=== PATIENT | female | born 1965 | race Caucasian/White ===

== ENCOUNTER 2017-10-10 14:31 | Emergency (ER) | payer OTHER, MEDICAID, SELFPAY ==
[2017-10-10 14:34] VITALS: BP 113/69; PULSE 85; RESP 20; TEMP 36.5; O2SAT 97; BMI 31.1
--- NOTE | 2017-10-10 14:37 | ED_ITS ---
HPI - Back Pain/Injury <LIEN Cintron - Last Filed: 10/10/17 22:17> General Chief Complaint: Back Pain/Injury Stated Complaint: LEFT SIDE BACK PAIN Time Seen by Provider: 10/10/17 14:37 Source: patient Mode of arrival: ambulatory Limitations: no limitations History of Present Illness HPI Narrative: 51-year-old female here for complaint of pain to her left lower back since yesterday. She states that she was doing yard work yesterday when the pain started last evening. She reports the pain is now radiating into her left buttocks area. She denies any loss of bladder or bowel control. Patient is ambulatory into the emergency room. No trauma to the lower back. She denies any falls. Increased pain with motion of the lower back. No other concerns or complaints. MD Complaint: back pain Related Data Previous Rx's Medication Instructions Recorded cyclobenzaprine 10 mg PO TID PRN #10 tab 10/10/17 prednisone 40 mg PO DAILY #8 tab 10/10/17 Review of Systems <LIEN Cintron - Last Filed: 10/10/17 22:17> Constitutional Denies chills, Denies fever(s), Denies lethargy and Denies weakness Eyes Denies change in vision, Denies eye discharge, Denies irritation and Denies loss of vision ENT Ears, Nose, Mouth, and Throat: Denies change in voice, Denies neck pain and Denies sore throat Cardiovascular Denies chest pain, Denies irregular heart rhythm, Denies lightheadedness, Denies palpitations, Denies dyspnea, Denies dyspnea on exertion and Denies orthopnea Respiratory Denies cough, Denies dyspnea, Denies dyspnea on exertion and Denies wheezing Gastrointestinal Gastrointestinal: Denies abdominal pain, Denies change in bowel habits, Denies diarrhea, Denies nausea and Denies vomiting Genitourinary Denies hematuria, Denies flank pain, Denies urinary incontinence and Denies urinary urgency Musculoskeletal Reports back pain and Denies neck pain Integumentary/Breasts Denies pruritus, Denies erythema, Denies rash and Denies wounds Neurologic Denies confusion, Denies loss of vision and Denies weakness Psychiatric Denies anxiety, Denies confusion, Denies depression, Denies homicidal ideation and Denies suicidal ideation Endocrine Denies palpitations Allergic/Immunologic Denies wheezing Exam <LIEN Cintron - Last Filed: 10/10/17 22:17> Initial Vital Signs Initial Vital Signs: Vital Signs Temperature 97.7 F 10/10/17 14:34 Pulse Rate 85 10/10/17 14:34 Respiratory Rate 20 10/10/17 14:34 Blood Pressure 113/69 10/10/17 14:34 Pulse Oximetry 97 10/10/17 14:34 Const General: cooperative and well developed Nutritional Appearance: well nourished Orientation: alert, awake, oriented x3 and not confused HENMT Mouth: oral mucosae normal and moist mucous membranes Eyes Conjunctivae: conjunctivae normal Sclera: sclerae normal Pupils: PERRL EOM: EOM intact bilaterally Resp Effort & Inspection: normal respiratory effort, able to speak in complete sentences, no respiratory distress and no use of accessory muscles Auscultation: clear to auscultation bilaterally, no rales, no rhonchi and no wheezes Cardio Rate: regular rate Rhythm: regular rhythm Heart Sounds: no click, no gallops, no murmurs and no rubs Pulses: normal peripheral pulses Back/Spine/Pelvis Thoracic/Lumbar Spine: thoracic and lumbar spine normal to inspection, No straight leg raise negative bilaterally (Straight leg test positive left side), No mass, paraspinal tenderness, No thoracic spinal tenderness, No lumbar spinal tenderness and straight leg raise positive Skin General: no rashes or lesions noted, No jaundice and No petechiae Neuro General: alert, oriented x3, gait normal and no focal motor deficits Speech: speech normal <aKlin Gleason DO - Last Filed: 10/27/17 07:58> Initial Vital Signs Initial Vital Signs: Vital Signs Temperature 97.7 F 10/10/17 14:34 Pulse Rate 85 10/10/17 14:34 Respiratory Rate 20 10/10/17 14:34 Blood Pressure 113/69 10/10/17 14:34 Pulse Oximetry 97 10/10/17 14:34 Course <LIEN Cintron - Last Filed: 10/10/17 22:17> Vital Signs - 8 hr 10/10/17 14:34 Temperature 97.7 F Pulse Rate 85 Respiratory Rate 20 Blood Pressure 113/69 Pulse Oximetry 97 <Kalin Gleason DO - Last Filed: 10/27/17 07:58> Vital Signs - 8 hr 10/10/17 14:34 Temperature 97.7 F Pulse Rate 85 Respiratory Rate 20 Blood Pressure 113/69 Pulse Oximetry 97 MDM - Back Pain/Injury <LIEN Cintron - Last Filed: 10/10/17 22:17> MDM Narrative Medical decision making narrative: Signs and symptoms presents as left lumbar muscular strain with sciatica. She is placed on a muscle relaxer cyclobenzaprine and also short course of prednisone for inflammation. Over-the- counter Tylenol as needed for any discomfort. Follow up primary care provider next week. Return emergency room for any worsening symptoms. Discharge Plan Departure Patient Disposition: Home, Self-Care Clinical Impression: Strain of lumbar region, Sciatica Discharge Date/Time: 10/10/17 15:16 Interventions: ED Discharge Assessment Last Done: 10/10/17 15:15 Instructions: DI for Back Pain With Sciatica Activity Restrictions/Additional Instructions: Signs and symptoms presents as left lower back muscle strain with sciatica. You have been placed on a muscle relaxer called cyclobenzaprine and use as directed. No driving while on the muscle relaxer as a can make you drowsy. Short course of prednisone is given which is a steroid for anti-inflammatory effects. You may continue to use the meloxicam as needed for discomfort may also use Tylenol. Heat to area 20 min at a time a few times a day for the next few days to help keep muscles loose. Follow up with her primary care provider next week. For any worsening symptoms return to the emergency room. Rest area. Prescriptions: New cyclobenzaprine 10 mg tablet 10 mg PO TID PRN (Reason: muscle spasm) Qty: 10 RF: 0 prednisone 20 mg tablet 40 mg PO DAILY Qty: 8 RF: 0 Referrals: [facility] [Provider Group] <Kalin Gleason DO - Last Filed: 10/27/17 07:58> Cosign ED Attending Grey[place] Attestation: I was immediately available in the department for consultation. Documentation has been reviewed. I agree with assessment and plan.
--- NOTE | 2017-10-10 15:12 | PC.NURSE ---
Pt states she was overdoing it in the yard yesterday. Today she is having muscle spasms in the low back and sciatic pains in the left buttocks. Denies any other symptoms. Denies bowel/bladder incontinence.
== END 2017-10-10 15:16 | disposition home or self-care (01) ==
LOC: ED 15:21
PROVIDERS: Emergency Provider Nurse Practitioner Family
DX: S39.012A Strain of muscle, fascia and tendon of lower back, initial encounter (principal); T73.3XXA Exhaustion due to excessive exertion, initial encounter
CPT/HCPCS: 99282